=== PATIENT | male | born 1980 | race Caucasian/White ===

== ENCOUNTER 2020-06-01 06:41 | Outpatient (CLI) | payer OTHER, SELFPAY ==
--- NOTE | ~2020-06-01 | MR_ITS ---
EXAMINATION: MR knee RT wo con DATE: 06/01/2020 08:03 INDICATION: Chronic right knee pain. TECHNIQUE: Magnetic resonance imaging (MRI) of the right knee was performed without intravenous contr ast. Sequences included axial PD-weighted FS FSE, coronal PD-weighted FSE and PD-weighted FS FSE, sag ittal PD-weighted FSE, and sagittal T2-weighted FS FSE. COMPARISON: None. FINDINGS: Medial compartment: Medial meniscus is normal. Medial compartment cartilage is normal. Lateral compartment: Lateral meniscus is normal. Lateral compartment cartilage is normal. Patellofemoral compartment: There is shallow partial-thickness cartilage loss of patellar medial and lateral facets. Trochlear ca rtilage is normal. Ligaments and tendons: The anterior and posterior cruciate ligaments are normal. There are changes of prior sprains of media l collateral ligament and fibular collateral ligament characterized by thickening and increased signa l intensity proximally. There is mild patellar tendinopathy. Fluid: There is a small knee joint effusion. There is a small Boyd's cyst. IMPRESSION: 1. Mild patellar chondrosis. 2. Normal menisci. 3. Small knee joint effusion. 4. Small Boyd's cyst. Reviewed, dictated and finalized at location A.
== END 2020-06-01 06:42 | disposition home or self-care (01) ==
LOC: CHSIMG 06:44
PROVIDERS: PCP Family Medicine; Visit Provider Family Medicine
DX: M25.561 Pain in right knee (principal); G89.29 Other chronic pain; M23.206 Derangement of unspecified meniscus due to old tear or injury, right knee
CPT/HCPCS: 73721

== ENCOUNTER 2020-10-13 13:13 | Outpatient (CLI) | payer OTHER, SELFPAY ==
[2020-10-13 14:20] LABS: SARS-CoV-2 Ag Negative (Negative)
[2020-10-14 17:56] LABS: SARS-CoV-2 RNA PCR Positive
== END 2020-10-13 13:14 | disposition home or self-care (01) ==
LOC: CHSLAB 13:18
PROVIDERS: PCP Family Medicine; Visit Provider Nurse Practitioner
DX: U07.1 COVID-19 (principal)
CPT/HCPCS: 87426; 87635; C9803; U0003

== ENCOUNTER 2022-04-03 13:06 | Outpatient (CLI) | payer OTHER, SELFPAY ==
--- NOTE | ~2022-04-03 | XR_ITS ---
XR femur LT min 2V DATE: 04/03/2022 13:49 INDICATION: Crushing injury to lateral left femur 2 days ago, bruising TECHNIQUE: AP and lateral views COMPARISON: None FINDINGS: No fracture or dislocation, periosteal reaction or bone destruction of the left femur. Norm al alignment at the left hip and knee joints. Below knee amputation IMPRESSION: No significant abnormality of the left femur Reviewed, dictated and finalized at location A.
== END 2022-04-03 13:07 | disposition home or self-care (01) ==
LOC: CHSIMG 13:12
DX: S89.92XA Unspecified injury of left lower leg, initial encounter (principal)
CPT/HCPCS: 73552

== ENCOUNTER 2022-05-02 21:12 | Emergency (ER) | payer OTHER, SELFPAY ==
--- NOTE | ~2022-05-02 | XR_ITS ---
EXAM: XR foot RT min 3V, XR ankle RT min 3V DATE: 05/02/2022 21:36 HISTORY: fall/PAIN THROUGHOUT LEG . COMPARISON: None available. FINDINGS: Normal mineralization. No fracture or dislocation. No lytic or blastic lesion. Joint space s are maintained. No erosion or periosteal change. Soft tissues within normal limits. IMPRESSION: No acute osseous finding in the right ankle or foot. Reviewed, dictated and finalized at location K. IMPRESSION: No acute osseous finding in the right ankle or foot.
--- NOTE | ~2022-05-02 | XR_ITS ---
EXAM: XR knee RT 3V DATE: 05/02/2022 21:36 HISTORY: FALL/PAIN THROUGHOUT LEG . COMPARISON: None available. FINDINGS: Normal mineralization. No fracture or dislocation. No lytic or blastic lesion. Joint space s are maintained. No erosion or periosteal change. Soft tissues within normal limits. IMPRESSION: No acute osseous finding in the right knee. Reviewed, dictated and finalized at location K.
[2022-05-02 21:15] VITALS: BP 144/101; PULSE 84; RESP 18; TEMP 37.2; O2SAT 98
--- NOTE | 2022-05-02 21:20 | ED.LOWEXIN ---
HPI - Extremity Injury (Lower) General Chief Complaint: Fall Stated Complaint: foot injury History of Present Illness HPI Narrative: Pt sasy his right knee gave out on steps last night and he fell on right knee and landed hard on his right foot. Pt says it hurts every time he bears weight on it. Pt says it has swollen quite a bit today. Related Data Home Medications Medication Instructions Recorded Confirmed oxycodone-acetaminophen 7.5 mg-325 1 tablet PO DIRECTED PRN Pain 05/02/22 05/02/22 mg tablet Allergies Allergy/AdvReac Type Severity Reaction Status Date / Time No Known Allergies Allergy Verified 05/02/22 21:45 Review of Systems Review of Systems: All systems reviewed & are unremarkable except as noted in HPI and below Exam Const: General: healthy appearing Nutritional Appearance: well nourished Orientation/consciousness: patient oriented x3 Limitations: no limitations Resp: Effort & Inspection: normal respiratory effort Cardio: Rate: regular rate Rhythm: regular rhythm GI: GI Palp: Yes Soft to palpation Auscultation: normal bowel sounds Neuro: General: patient oriented x3, moves all extremities and no focal motor deficits Speech: normal speech Gait exam (Neuro): Normal gait present Extrem: Other: swelling to lateral top of foot and lateral ankle ligaments with bruising, abrasion to right knee but no swelling Psych: Mental Status: mental status grossly normal Affect: normal affect Attitude: cooperative Course Vital Signs Vital signs: Vital Signs Temperature 99 F 05/02/22 21:15 Pulse Rate 84 05/02/22 21:15 Respiratory Rate 18 05/02/22 21:15 Blood Pressure 144/101 H 05/02/22 21:15 Pulse Oximetry 98 05/02/22 21:15 Oxygen Delivery Room Air 05/02/22 21:15 Temperature 99 F 05/02/22 21:15 Pulse Rate 84 05/02/22 21:15 Respiratory Rate 18 05/02/22 21:15 Blood Pressure 144/101 H 05/02/22 21:15 Pulse Oximetry 98 05/02/22 21:15 Oxygen Delivery Room Air 05/02/22 21:15 MDM - Extremity Injury (Lower) Imaging Data Radiologist's impression: no fx or dislocation in foot knee or ankle Discharge Plan Discharge Clinical Impression: Right ankle sprain Patient Disposition: Home, Self-Care Condition: Stable Instructions: Antibiotic Form, Ankle Sprain (DC) Prescriptions: No Action oxycodone-acetaminophen 7.5-325 mg tablet 1 tablet PO DIRECTED PRN (Reason: Pain) Follow-up/Referrals: Johnny,WONG Luna [Primary Care Provider] - Stand Alone Forms: Work/School Release IP
== END 2022-05-02 22:06 | disposition home or self-care (01) ==
PROVIDERS: Emergency Provider Emergency Medicine; PCP Physician Assistant
DX: S93.401A Sprain of unspecified ligament of right ankle, initial encounter (principal); W19.XXXA Unspecified fall, initial encounter
CPT/HCPCS: 73562; 73610; 73630; 99284